=== PATIENT | female | born 1955 | race Caucasian/White ===

== ENCOUNTER → 2020-06-26 | Outpatient (CLI) | payer MEDICARE, OTHER | LOC: EXRD 12:51 | DX: M06.9 Rheumatoid arthritis, unspecified (principal); I77.89 Other specified disorders of arteries and arterioles | CPT/HCPCS: 72040 ==

== ENCOUNTER → 2020-12-05 | Outpatient (CLI) | payer MEDICARE ==
[~2020-12-05] VITALS: Ht 165.1 cm; Wt 68.0 kg
== END ==
LOC: OPSV 12:00
DX: M81.0 Age-related osteoporosis without current pathological fracture (principal)
CPT/HCPCS: 96372